=== PATIENT | male | born 2000 | race Caucasian/White ===

== ENCOUNTER 2019-02-01 18:13 | Emergency (ER) | payer MEDICAID ==
[~2019-02-01] VITALS: Ht 182.9 cm; Wt 81.8 kg
[~2019-02-01 18:13] MED LIST: IBUP-1573 PO; NO HOME MEDS
[2019-02-01 18:39] VITALS: BP 141/83
== END 2019-02-01 21:02 | disposition home or self-care (01) ==
LOC: ER 18:14
DX: S62.397A Other fracture of fifth metacarpal bone, left hand, initial encounter for closed fracture (principal); F12.90 Cannabis use, unspecified, uncomplicated; F15.90 Other stimulant use, unspecified, uncomplicated; Z98.890 Other specified postprocedural states; W22.8XXA Striking against or struck by other objects, initial encounter; Y93.89 Activity, other specified; Y92.89 Other specified places as the place of occurrence of the external cause; Y99.9 Unspecified external cause status
CPT/HCPCS: 29125; 73130; 99283

== ENCOUNTER 2019-02-06 16:06 | Emergency (ER) | payer MEDICAID ==
[~2019-02-06] VITALS: Ht 182.9 cm; Wt 90.9 kg
[2019-02-06 16:19] VITALS: BP 130/79
== END 2019-02-06 18:03 | disposition home or self-care (01) ==
LOC: ER 16:06
DX: M79.645 Pain in left finger(s) (principal); R20.0 Anesthesia of skin; R20.2 Paresthesia of skin; F12.90 Cannabis use, unspecified, uncomplicated; F15.90 Other stimulant use, unspecified, uncomplicated; Z98.890 Other specified postprocedural states; Z79.899 Other long term (current) drug therapy
CPT/HCPCS: 29125; 99283

== ENCOUNTER 2019-02-16 09:49 | Emergency (ER) | payer MEDICAID ==
[~2019-02-16] VITALS: Ht 182.9 cm; Wt 95.5 kg
[2019-02-16] MEDS ORDERED: HYDR26CR TP (10:15)
[2019-02-16] MEDS ORDERED: SENN-162 PO (10:15)
[2019-02-16 10:24] VITALS: BP 132/67
== END 2019-02-16 10:20 | disposition home or self-care (01) ==
LOC: ER 09:49
DX: K64.4 Residual hemorrhoidal skin tags (principal); F12.90 Cannabis use, unspecified, uncomplicated; F15.90 Other stimulant use, unspecified, uncomplicated; Z98.890 Other specified postprocedural states; Z79.899 Other long term (current) drug therapy
CPT/HCPCS: 99283

== ENCOUNTER 2019-07-31 08:10 | Emergency (ER) | payer MEDICAID ==
[~2019-07-31] VITALS: Ht 182.9 cm; Wt 95.8 kg
[~2019-07-31 08:10] MED LIST changes: +HYDR26CR TP; +SENN-162 PO
[2019-07-31 08:13] VITALS: BP 137/67
[2019-07-31] MEDS ORDERED: AMOX-422 PO (08:25)
== END 2019-07-31 08:50 | disposition home or self-care (01) ==
LOC: ER 08:10
DX: K04.7 Periapical abscess without sinus (principal); F12.90 Cannabis use, unspecified, uncomplicated; F15.90 Other stimulant use, unspecified, uncomplicated; Z79.2 Long term (current) use of antibiotics; Z79.899 Other long term (current) drug therapy
CPT/HCPCS: 99283

== ENCOUNTER 2020-12-09 11:37 | Emergency (ER) | payer MEDICAID ==
[~2020-12-09] VITALS: Ht 182.9 cm; Wt 77.0 kg
[~2020-12-09 11:37] MED LIST changes: -HYDR26CR TP; +HYDR26CR2 TP; -SENN-162 PO; +SENN-263 PO
[2020-12-09 11:56] VITALS: BP 127/82
[2020-12-09] MEDS ORDERED: PETR1BAN16 TOP (14:14)
[2020-12-09] MEDS ORDERED: [UNRECOGNIZED DRUG - CODE] TOP (14:19)
== END 2020-12-09 14:28 | disposition home or self-care (01) ==
LOC: ER 11:39
DX: S80.811A Abrasion, right lower leg, initial encounter (principal); S31.000A Unspecified open wound of lower back and pelvis without penetration into retroperitoneum, initial encounter; S71.101A Unspecified open wound, right thigh, initial encounter; F12.90 Cannabis use, unspecified, uncomplicated; F15.90 Other stimulant use, unspecified, uncomplicated; F17.200 Nicotine dependence, unspecified, uncomplicated; Z72.89 Other problems related to lifestyle; Z79.899 Other long term (current) drug therapy; V89.2XXA Person injured in unspecified motor-vehicle accident, traffic, initial encounter; Y93.89 Activity, other specified; Y92.89 Other specified places as the place of occurrence of the external cause; Y99.8 Other external cause status
CPT/HCPCS: 99282; 99283

== ENCOUNTER 2021-08-18 14:49 | Emergency (ER) | payer OTHER, MEDICAID ==
[~2021-08-18] VITALS: Ht 182.9 cm; Wt 81.8 kg
[~2021-08-18 14:49] MED LIST changes: +PETR1BAN16 TOP; +[UNRECOGNIZED DRUG - CODE] TOP
[2021-08-18 14:59] VITALS: BP 134/77
--- NOTE | 2021-08-18 21:12 | NUR ---
not in lobby
== END 2021-08-18 21:13 | disposition left against medical advice (07) ==
LOC: ER 14:50
DX: M54.9 Dorsalgia, unspecified (principal); Z53.21 Procedure and treatment not carried out due to patient leaving prior to being seen by health care provider